=== PATIENT | female | born 1980 | race Hispanic/Latino ===

== ENCOUNTER 2024-10-14 05:14 | Emergency (ER) | payer SELFPAY ==
[~2024-10-14] VITALS: Ht 154.9 cm; Wt 86.2 kg
[2024-10-14 05:42] LABS: BASOPHILS # (AUTO) 0.03 K/uL (0.00-0.20); BASOPHILS % (AUTO) 0.4 % (0.0-5.0); EOSINOPHILS # (AUTO) 0.44 K/uL (0.00-0.70); EOSINOPHILS % (AUTO) 5.8 % (0.0-8.0); HEMATOCRIT 42.1 % (36-48); IMMATURE GRANULOCYTE ABSOLUTE 0.04 K/uL (0-1); LYMPHOCYTES # (AUTO) 1.8 K/uL (1.0-4.8); LYMPHOCYTES % (AUTO) 23.9 % (21.0-51.0); MEAN CORPUSCULAR HEMOGLOBIN 31.4 pg (27.0-33.0); MEAN CORPUSCULAR HGB CONC 33.7 g/dL (32.0-36.0); MEAN CORPUSCULAR VOLUME 93.1 fL (79-99); MONOCYTES # (AUTO) 0.5 K/uL (0.1-1.0); NEUTROPHILS # (AUTO) 4.8 K/uL (1.8-7.7); NEUTROPHILS % (AUTO) 63.4 % (40.0-77.0); PLATELET COUNT (AUTO) 328 K/uL (130-400); RED BLOOD CELL COUNT(AUTO) 4.52 MIL/uL (4.00-5.50); WHITE BLOOD COUNT (AUTO) 7.6 K/uL (4.8-10.8)
[2024-10-14] MEDS: predniSONE 20 MG TABLET PO ONE (05:50)
[2024-10-14] MEDS: DiphenhydrAMINE HCL 25 MG CAPSULE PO ONE (05:50)
[2024-10-14] MEDS: FAMOTIDINE 20MG TAB PO ONE (05:51)
[2024-10-14] MEDS: hydroCORTISONE 2.5% CREAM 28G TP SCH (05:51)
[2024-10-14 05:54] LABS: CREATININE 0.7 mg/dL (0.5-1.0); POTASSIUM 4.1 mmol/L (3.5-5.1)
[2024-10-14] MEDS ORDERED: HYD25 PO (05:58)
[2024-10-14] MEDS ORDERED: PRED20TA3 PO (05:58)
--- NOTE | 2024-10-14 05:58 | ERN ---
ED Note History of Present Illness Stated Complaint: ALLERGIC REACTION Chief Complaint: Allergic Reaction Time Seen by MD: 05:17 Dictation: This is a 44-year-old morbidly obese female who came into the emergency room complaining of pruritic rash for the past 2 months. She stated that the rash started mostly in the folds and exposed areas and by scratching it it is worse and today by 2:00 a.m. it was unbearable and she also started having severe burning and hence she came into the ER for further evaluation. During my assessment she was itching all over. She has used Benadryl, aloe vera cream, clindamycin ointment, scabisan oriented so far. No fevers chills rigors no weight loss She does give a history of occasional loose stool after eating. She denied any new soaps detergents or any changes in her lifestyle. She is a cook by Profession for many years. Afebrile heart rate 75 respirations 20 blood pressure 154/98 with a pulse oximetry of 99% on room air Allergies: Coded Allergies: No Known Allergies (Unverified Allergy, Unknown, 10/14/24) Home Meds Active Scripts Hydroxyzine HCl (Atarax) 25 Mg Tab, 25 MG PO TID for itching, #30 TAB Prov:PAOLO MICHEL MD 10/14/24 Prednisone (Prednisone) 20 Mg Tablet, 1 TAB PO AD for 6 Days, #14 TAB 0 Refills TAKE 1 TAB BY MOUTH THREE TIMES PER DAY X3 DAYS, THEN TAKE 1 TAB BY MOUTH TWICE A DAY X2 DAYS, THEN TAKE 1 TAB BY MOUTH ONCE A DAY X1 DAY. Prov:PAOLO MICHEL MD 10/14/24 Past Medical History Past Medical History: No Pertinent History Surgical History: Family History: Negative Social History: Negative RN Note Reviewed/Agreed w/PFSH: Yes Review of System Dictation Constitutional: Negative for fever,chills, and weight loss Eyes: Negative for injury, pain,redness, and discharge ENT: Negative for injury,pain or swelling Cardiovascular: Negative for chest pain, palpitations, and edema Respiratory: Negative for shortness of breath, cough, and wheezing, Abdomen/GI: Negative for abdominal pain, nausea, vomiting, and constipation, positive for diarrhea Back: Negative for injury and pain : Negative for injury, bleeding and discharge MS/Extremity: Negative for injury and deformity Skin: Positive for rash, and discoloration Neuro: Negative for headache, weakness, numbness, tingling, and seizure Psych: Negative for suicide ideation, homicidal ideation, and hallucinations Initial Vital Sign VS Vital Signs Date Time Temp Pulse Resp B/P (MAP) Pulse Ox O2 Delivery O2 Flow Rate FiO2 10/14/24 05:15 97.0 75 20 154/98 99 Room Air 10/14/24 05:28 0 21 Physical Exam Dictation General: awake, alert, NAD Head/Face: Normocephalic, atraumatic Eyes: PERRL, EOMI, vision at baseline ENT: oral cavity clear, TMs clear, no signs of infection Neck: Trachea midline, supple, no nuchal rigidity Cardiovascular: RRR, normal S1/S2, No MRGs, no JVD Respiratory: CTAB, no respiratory distress, No rales or wheezes Abdomen: Soft, non-tender, non-distended, normal bowel sounds, no guarding or rebound. Skin: Warm, dry, normal turgor, erythematous papular itchy rash along the axillary folds forearms antecubital fossa, popliteal fossa and thighs. I can not appreciate the rash in the scalp although patient's stay states she has itchiness in the posterior scalp MS/Extremity: Pulses equal, no cyanosis, neurovascular intact, FROM Neuro: COAx4, GCS 15, strength 5/5, CN 2-12 intact, normal cerebellar exam, normal gait, Psych: Normal behavior, mood, and affect normal Extremities-trace edema without any palpable cords, Homans sign is negative Results (Laboratory/Radiology) Laboratory/Radiology Laboratory Tests Test 10/14/24 05:25 White Blood Count 7.6 K/uL (4.8-10.8) Red Blood Count 4.52 MIL/uL (4.00-5.50) Hemoglobin 14.2 g/dL (12.0-16.0) Hematocrit 42.1 % (36-48) Mean Corpuscular Volume 93.1 fL (79-99) Mean Corpuscular Hemoglobin 31.4 pg (27.0-33.0) Mean Corpuscular Hemoglobin Concent 33.7 g/dL (32.0-36.0) Red Cell Distribution Width 12.0 % (11.0-15.5) Platelet Count 328 K/uL (130-400) Mean Platelet Volume 9.6 fL (7.5-10.5) Immature Granulocyte % (Auto) 0.5 % (0-1) Neutrophils (%) (Auto) 63.4 % (40.0-77.0) Lymphocytes (%) (Auto) 23.9 % (21.0-51.0) Monocytes (%) (Auto) 6.0 % (3.0-13.0) Eosinophils (%) (Auto) 5.8 % (0.0-8.0) Basophils (%) (Auto) 0.4 % (0.0-5.0) Neutrophils # (Auto) 4.8 K/uL (1.8-7.7) Lymphocytes # (Auto) 1.8 K/uL (1.0-4.8) Monocytes # (Auto) 0.5 K/uL (0.1-1.0) Eosinophils # (Auto) 0.44 K/uL (0.00-0.70) Basophils # (Auto) 0.03 K/uL (0.00-0.20) Absolute Immature Granulocyte (auto 0.04 K/uL (0-1) Nucleated Red Blood Cells 0.0 % (0.0-0.19) Sodium Level 139 mmol/L (136-145) Potassium Level 4.1 mmol/L (3.5-5.1) Chloride Level 102 mmol/L (101-111) Carbon Dioxide Level 26 mmol/L (21-32) Blood Urea Nitrogen 16 mg/dL (7-18) Creatinine 0.7 mg/dL (0.5-1.0) Glomerular Filtration Rate Calc 109 mL/min (>90) Random Glucose 123 mg/dL (70-105) H Total Calcium 9.3 mg/dL (8.5-10.1) Labs Reviewed?: Yes ED Course ED Course Orders Procedure Category Date Status Time Cbc With Differential LAB 10/14/24 Complete 05: Basic Metabolic Panel LAB 10/14/24 Complete 05:26 Diphenhydramine Hcl PHA 10/14/24 Complete (Benadryl Cap) 06:00 Famotidine 20mg Tab PHA 10/14/24 Complete (Pepcid 20mg Tab) 06:00 Prednisone 20mg Tab PHA 10/14/24 Complete (Deltasone/Orasone 2 06:00 Hydrocortisone 2.5% PHA 10/14/24 In Process Cream 28g (Hytone 2. 06:00 Current Medications Medications (Trade) Dose Ordered Sig/Mimi Route PRN Reason Start Time Stop Time Status Last Admin Dose Admin Diphenhydramine HCl (BENAdryl CAP) 25 mg ONCE ONCE PO 10/14/24 06:00 10/14/24 06:01 DC 10/14/24 05:50 Famotidine (Pepcid 20mg Tab) 20 mg ONCE ONCE PO 10/14/24 06:00 10/14/24 06:01 DC 10/14/24 05:51 Hydrocortisone (hyTONE 2.5% CREAM 28G) 1 appl ONCE TP 10/14/24 06:00 11/13/24 05:59 10/14/24 05:51 Prednisone (deltaSONE/ oraSONE 20MG TAB) 40 mg ONCE ONCE PO 10/14/24 06:00 10/14/24 06:01 DC 10/14/24 05:50 Vital Signs Date Time Temp Pulse Resp B/P (MAP) Pulse Ox O2 Delivery O2 Flow Rate FiO2 10/14/24 06:36 98.2 61 18 119/83 100 Room Air* 0 21 10/14/24 05:28 66 18 137/90 99 Room Air* 0 21 10/14/24 05:15 97.0 75 20 154/98 99 Room Air We will perform diagnostic labs, and administer medications according to the patient's complaint. Once the results are available, will review and personally interpreted the labs to rule out any acute life-threatening emergency the trach require immediate intervention and treatment. I will then re-evaluate the patient after treatment and diagnostic exams have return to determine whether the patient requires any further testing, can safely be discharged home or need further admission to hospital for additional treatment and evaluation. 5:49 a.m. labs reviewed CBC is within normal limits BNP 7 is pending Medical Decision Making MDM MDM: Differential diagnosis: Atopic dermatitis, eczema, allergic reaction to some irritant, celiac disease, environmental versus food allergy. Rationale: Tests considered and ordered secondary to shared decision making include: Previous outside records reviewed: Old ER visits. Risk of complication and/or morbidity or mortality of patient management: None Medications-Per medication reconciliation Need for hospitalization: Patient does not meet criteria for hospitalization. Need for emergency major/minor surgery: No There are no social concerns with this patient. Prescription drug management Prescriptions will include symptomatic care Patient's prior external medical records from other ER visits were reviewed by me as indicated. Prior testing and results from previous visits were reviewed. Prior tests were taken into account with medical decision making and resource utilization, independent historian/historians were used to obtain complete medical history. I independently interpreted the test that were performed, results were reviewed by me and considered findings on radiology if ordered. Medical management and examination interpretation discussions were had by me with other qualified healthcare professionals as indicated for the patient's care. Problem List Problem List: (1) Pruritic erythematous rash (2) Eczema intertrigo DX & DISP Disposition: Discharge Departure Impression: Primary Impression: Eczema intertrigo Additional Impression: Pruritic erythematous rash Condition: Stable Scripts Hydroxyzine HCl (Atarax) 25 Mg Tab 25 MG PO TID for itching, #30 TAB Prov: PAOLO MICHEL MD 10/14/24 Prednisone (Prednisone) 20 Mg Tablet 1 TAB PO AD for 6 Days, #14 TAB 0 Refills TAKE 1 TAB BY MOUTH THREE TIMES PER DAY X3 DAYS, THEN TAKE 1 TAB BY MOUTH TWICE A DAY X2 DAYS, THEN TAKE 1 TAB BY MOUTH ONCE A DAY X1 DAY. Prov: PAOLO MICHEL MD 10/14/24 Additional Instructions: Patient and the caregiver have been informed of all the diagnostic tests and the imaging conducted during the today's visit to the emergency room and has v erbalized understanding of the results I have personally reviewed and interpreted all diagnostic exams performed here in the ER today as well as the vital signs documented by the nursing staff. The patient is now being discharged to home and should follow up with the primary care physician or the specialist as directed by the ER staff. Follow-up with primary care provider in 1 to 2 days. Take medications as directed here in the emergency room. Okay to continue home medications unless otherwise discussed during your visit in the emergency room today. Return to your nearest emergency room if symptoms worsen or if there is no improvement. Call 911 if you need immediate assistance. Take Tylenol or Motrin [id number] as needed and if no contraindications are present. Increase oral hydration. A wound culture or urine culture was ordered here in the emergency room department please follow-up with primary care provider and advise them to get repeat ports from our facility. If you had any Jamison wrap/splints that were applied here, please do not remove them until you see your primary care or specialty. If she does not improve with the current regimen she may have to be tried on antifungal agents. Also recommended that she see a media marketing specialist or allergy im munologist Referrals: SELF,REFERRAL (PCP) PAOLO MICHEL MD Oct 14, 2024 05:58
[2024-10-14 06:36] VITALS: BP 119/83; PULSE 61; RESP 18; TEMP 98.3; O2SAT 100
== END 2024-10-14 07:37 | disposition home or self-care (01) ==
LOC: EDH 05:14
DX: L30.4 Erythema intertrigo (principal); R21 Rash and other nonspecific skin eruption
CPT/HCPCS: 99284; 80048; 85025; 36415; Q0163